=== PATIENT | female | born 1940 | race Caucasian/White ===

== ENCOUNTER 2020-01-05 21:32 | Inpatient (IN) ==
[2020-01-05] MEDS ORDERED: SODIUM CHLORIDE 0.9% 500 ML IV STA (22:14)
[2020-01-05 22:35] LABS: Hematocrit 31.9 VOL% (35.7-47.0); Hemoglobin 11.1 GM/DL (12.0-16.0); Immature Granulocytes % 1.8 %; Immature Granulocytes Absolute 0.03 #; Lymphocytes # 0.2 10*3/uL (1.4-4.0); Mean Corpuscular HGB Conc 34.8 GM/DL (32-36); Mean Corpuscular Volume 89.6 FL (87-102); Mean Platelet Volume 9.1 FL (9.6-12.0); Monocytes % 2.4 % (1.7-12.7); Neutrophils % 84.8 % (38.7-73.9); Platelet Count 195 T/CUMM (130-400); Red Blood Count 3.56 MC/CUMM (3.8-5.5); White Blood Count 1.6 T/CUMM (4-12)
[2020-01-05 22:39] LABS: INR 0.9
[2020-01-05 22:51] LABS: Alanine Aminotransferase 21 U/L (13-56); Albumin 3.4 G/DL (3.4-5.0); Alkaline Phosphatase 72 U/L (45-117); Aspartate Amino Transferase 23 U/L (0-37); Blood Urea Nitrogen 19 MG/DL (7-18); Calcium 9.1 MG/DL (8.5-10.1); Estimated Glom Filtration Rate 54 ML/MIN; Glucose 172 MG/DL (74-106); Osmolality,Calculated 250.9 MOS/KG (273-304); Total Protein 6.2 G/DL (6.4-8.3)
[2020-01-05 23:02] LABS: Apearance,Urine CLEAR (Clear); Bilirubin,Urine Negative (Negative); Blood, Urine Small mg/dL (Negative); Glucose,Urine (UA) Negative (Negative); Hyaline Casts,Urine 1 /LPF (0-3); Ketones,Urine Negative (Negative); Nitrite,Urine Negative (Negative); Protein,Urine Negative; RBC,Urine 11 /HPF (0-4); Urine Color Straw (Yellow); Urine Specific Gravity 1.006 (1.001-1.035); Urine Urobilinogen < 2.0 EU/DL (0.2-1.0); WBC,Urine <1 /HPF (0-6)
[2020-01-05 23:13] LABS: Barbiturates Screen,Urine Negative (Negative); Benzodiazepines Screen,Urine Negative (Negative); Cannabinoid Screen,Urine Negative (Negative); Opiate Screen,Urine Negative (Negative); Phencyclidine Screen,Urine Negative (Negative)
[2020-01-05] MEDS ORDERED: MAGNESIUM SULF RIDER 2 GM in PREMIX 1 EACH IV STA (23:35)
[2020-01-05] MEDS ORDERED: guaiFENesin/DM ER 600-30 MG TABLET PO PRN (23:47)
[2020-01-05] MEDS ORDERED: hydrALAZINE 20 MG/1 ML VIAL IV PRN (23:47)
[2020-01-05] MEDS ORDERED: ONDANSETRON 4 MG/2 ML VIAL IV PRN (23:47)
[2020-01-05] MEDS ORDERED: NICOTINE 21 MG/24 HR PATCH TRANSDERM PRN (23:47)
[2020-01-05] MEDS ORDERED: PROMETHAZINE 25 MG/1 ML VIAL IM PRN (23:47)
[2020-01-05] MEDS ORDERED: diphenhydrAMINE CAP 25 MG CAPSULE PO PRN (23:47)
[2020-01-06 00:28] LABS: Anisocytosis 1+; Band Neutrophils 2 % (0-10); Hypochromasia Slight; Lymphocytes 11 % (20-55); Microcytosis Slight; Segmented Neutrophils 82 % (50-85); Total Cells Counted 100
[2020-01-06 00:29] LABS: Acanthocytes Few; Ovalocytes 1+; Platelet Estimate Adequate
[2020-01-06] MEDS: ALBUTEROL 2.5 MG/3 ML NEB RESP TX SCH ×4 (00:38→19:45)
[2020-01-06 00:52] LABS: Hematocrit 32.3 VOL% (35.7-47.0); Hemoglobin 11.1 GM/DL (12.0-16.0); Immature Granulocytes % 0.7 %; Immature Granulocytes Absolute 0.01 #; Lymphocytes # 0.2 10*3/uL (1.4-4.0); Lymphocytes % 17.6 % (21.3-54.2); Mean Corpuscular HGB Conc 34.4 GM/DL (32-36); Mean Platelet Volume 9.1 FL (9.6-12.0); Monocytes % 1.5 % (1.7-12.7); Neutrophils % 80.2 % (38.7-73.9); Platelet Count 196 T/CUMM (130-400); Red Blood Count 3.59 MC/CUMM (3.8-5.5); Red Cell Distribution Width 12.1 % (9.3-17.3); White Blood Count 1.4 T/CUMM (4-12)
[2020-01-06] MEDS ORDERED: TOLVAPTAN 15 MG TABLET PO SCH (01:00)
[2020-01-06 01:06] LABS: Albumin 3.2 G/DL (3.4-5.0); Bilirubin,Total 0.6 MG/DL (0.2-1.0); Osmolality,Calculated 249.9 MOS/KG (273-304); Thyroid Stimulating Hormone 1.05 uIU/ml (0.358-3.74); Total Protein 6.4 G/DL (6.4-8.3)
[2020-01-06] MEDS: SODIUM CHLORIDE 0.9% 1,000 ML IV SCH ×2 (01:30→09:40)
[2020-01-06 02:27] LABS: Acanthocytes Few; Anisocytosis 1+; Hypochromasia Slight; Lymphocytes 14 % (20-55); Microcytosis Slight; Ovalocytes Slight; Platelet Estimate Adequate; Segmented Neutrophils 79 % (50-85); Total Cells Counted 100
[2020-01-06] MEDS ORDERED: MAGNESIUM SULF RIDER 4 GM in PREMIX 1 EACH IV PRN ×2 (05:49→06:34)
[2020-01-06] MEDS: MAGNESIUM SULF RIDER 2 GM in PREMIX 1 EACH IV PRN (06:05)
[2020-01-06] MEDS ORDERED: SODIUM CHLORIDE 3% INJ 500 ML IV SCH (06:30)
[2020-01-06] MEDS ORDERED: MAGNESIUM SULF RIDER 2 GM in PREMIX 1 EACH IV PRN (06:34)
[2020-01-06] MEDS: PANTOPRAZOLE 40 MG TABLET PO SCH (09:35)
[2020-01-06] MEDS: ENOXAPARIN 40 MG/0.4 ML SYRINGE SUBCUT SCH (09:35)
[2020-01-06] MEDS: DOCUSATE SODIUM 100 MG CAPSULE PO PRN (09:37)
[2020-01-06] MEDS: POTASSIUM CHLORIDE 10 MEQ TABLET PO SCH (21:26)
[2020-01-06] MEDS: SIMVASTATIN 40 MG TABLET PO SCH (21:26)
[2020-01-07] MEDS: ALBUTEROL 2.5 MG/3 ML NEB RESP TX SCH ×4 (00:22→19:13)
[2020-01-07 05:31] LABS: Basophils % 0.4 % (0.0-0.8); Hematocrit 27.6 VOL% (35.7-47.0); Hemoglobin 9.3 GM/DL (12.0-16.0); Immature Granulocytes % 1.1 %; Immature Granulocytes Absolute 0.03 #; Lymphocytes # 0.6 10*3/uL (1.4-4.0); Lymphocytes % 24.5 % (21.3-54.2); Mean Corpuscular HGB Conc 33.7 GM/DL (32-36); Mean Corpuscular Volume 92.3 FL (87-102); Mean Platelet Volume 9.4 FL (9.6-12.0); Monocytes % 10.3 % (1.7-12.7); Neutrophils % 63.7 % (38.7-73.9); Platelet Count 185 T/CUMM (130-400); Red Blood Count 2.99 MC/CUMM (3.8-5.5); Red Cell Distribution Width 12.7 % (9.3-17.3); White Blood Count 2.6 T/CUMM (4-12)
[2020-01-07 06:07] LABS: Calcium 8.8 MG/DL (8.5-10.1); Osmolality,Calculated 271.1 MOS/KG (273-304)
[2020-01-07] MEDS: LEVOTHYROXINE 50 MCG TABLET PO SCH (06:09)
[2020-01-07] MEDS: PANTOPRAZOLE 40 MG TABLET PO SCH (08:28)
[2020-01-07] MEDS: ENOXAPARIN 40 MG/0.4 ML SYRINGE SUBCUT SCH (08:28)
[2020-01-07] MEDS: POTASSIUM CHLORIDE 10 MEQ TABLET PO SCH ×2 (08:28→21:17)
[2020-01-07] MEDS: SODIUM CHLORIDE 0.45% 1,000 ML IV SCH (11:00)
[2020-01-07 13:25] LABS: Osmolality, Serum 258 mOsm/kg (275 - 295)
[2020-01-07 13:55] LABS: Osmolality, Urine 277 mOsm/kg (150 - 1150)
[2020-01-07] MEDS: ACETAMINOPHEN 325 MG TABLET PO PRN (21:18)
[2020-01-07] MEDS: SIMVASTATIN 40 MG TABLET PO SCH (21:18)
[2020-01-07] MEDS: ZALEPLON 5 MG CAPSULE PO PRN (22:36)
[2020-01-08] MEDS: SODIUM CHLORIDE 0.45% 1,000 ML IV SCH ×2 (00:18→15:53)
[2020-01-08] MEDS: ALBUTEROL 2.5 MG/3 ML NEB RESP TX SCH ×4 (01:53→19:44)
[2020-01-08 05:48] LABS: Calcium 8.5 MG/DL (8.5-10.1); Calcium 8.7 MG/DL (8.5-10.1); Osmolality,Calculated 264.5 MOS/KG (273-304); Osmolality,Calculated 265.5 MOS/KG (273-304)
[2020-01-08] MEDS: LEVOTHYROXINE 50 MCG TABLET PO SCH (06:06)
[2020-01-08] MEDS: ACETAMINOPHEN 325 MG TABLET PO PRN ×2 (09:21→21:13)
[2020-01-08] MEDS: PANTOPRAZOLE 40 MG TABLET PO SCH (09:21)
[2020-01-08] MEDS: POTASSIUM CHLORIDE 10 MEQ TABLET PO SCH ×2 (09:21→21:06)
[2020-01-08] MEDS: ENOXAPARIN 40 MG/0.4 ML SYRINGE SUBCUT SCH (09:22)
[2020-01-08] MEDS ORDERED: predniSONE 50 MG TABLET PO SCH (13:00)
[2020-01-08] MEDS ORDERED: predniSONE 10 MG TABLET ONE (16:05)
[2020-01-08] MEDS ORDERED: predniSONE 20 MG TABLET ONE (16:05)
[2020-01-08] MEDS: predniSONE 50 MG TABLET PO SCH ×2 (16:13→22:50)
[2020-01-08] MEDS: MAGNESIUM SULF RIDER 2 GM in PREMIX 1 EACH IV PRN (16:18)
[2020-01-08] MEDS: SIMVASTATIN 40 MG TABLET PO SCH (21:06)
[2020-01-08] MEDS: ZALEPLON 5 MG CAPSULE PO PRN (21:13)
[2020-01-09] MEDS: ALBUTEROL 2.5 MG/3 ML NEB RESP TX SCH ×4 (01:03→19:59)
[2020-01-09] MEDS: SODIUM CHLORIDE 0.45% 1,000 ML IV SCH ×3 (04:34→15:45)
[2020-01-09] MEDS ORDERED: diphenhydrAMINE CAP 50 MG CAPSULE PO ONE (05:00)
[2020-01-09] MEDS ORDERED: predniSONE 50 MG TABLET PO ONE (05:00)
[2020-01-09 05:29] LABS: Hematocrit 28.7 VOL% (35.7-47.0); Hemoglobin 9.6 GM/DL (12.0-16.0); Immature Granulocytes % 1.4 %; Immature Granulocytes Absolute 0.04 #; Lymphocytes # 0.3 10*3/uL (1.4-4.0); Lymphocytes % 9.7 % (21.3-54.2); Mean Corpuscular HGB Conc 33.4 GM/DL (32-36); Mean Corpuscular Volume 92.6 FL (87-102); Mean Platelet Volume 9.6 FL (9.6-12.0); Monocytes % 1.1 % (1.7-12.7); Neutrophils % 87.8 % (38.7-73.9); Platelet Count 191 T/CUMM (130-400); Red Cell Distribution Width 13.2 % (9.3-17.3); White Blood Count 2.8 T/CUMM (4-12)
[2020-01-09] MEDS: LEVOTHYROXINE 50 MCG TABLET PO SCH (05:30)
[2020-01-09 05:41] LABS: Calcium 8.8 MG/DL (8.5-10.1); Osmolality,Calculated 266.7 MOS/KG (273-304)
[2020-01-09] MEDS ORDERED: predniSONE 20 MG TABLET ONE (09:58)
[2020-01-09] MEDS ORDERED: predniSONE 10 MG TABLET ONE (09:59)
[2020-01-09] MEDS: PANTOPRAZOLE 40 MG TABLET PO SCH (11:13)
[2020-01-09] MEDS: DOCUSATE SODIUM 100 MG CAPSULE PO PRN ×2 (11:13→21:32)
[2020-01-09] MEDS: POTASSIUM CHLORIDE 10 MEQ TABLET PO SCH ×2 (11:13→21:32)
[2020-01-09] MEDS: ENOXAPARIN 40 MG/0.4 ML SYRINGE SUBCUT SCH (11:13)
[2020-01-09] MEDS: predniSONE 50 MG TABLET PO SCH ×2 (16:37→23:47)
[2020-01-09] MEDS: SIMVASTATIN 40 MG TABLET PO SCH (21:32)
[2020-01-09] MEDS: ACETAMINOPHEN 325 MG TABLET PO PRN (21:42)
[2020-01-09] MEDS: ZALEPLON 5 MG CAPSULE PO PRN (21:43)
[2020-01-10] MEDS: ALBUTEROL 2.5 MG/3 ML NEB RESP TX SCH ×3 (01:58→12:17)
[2020-01-10] MEDS: SODIUM CHLORIDE 0.45% 1,000 ML IV SCH ×2 (03:21→07:46)
[2020-01-10] MEDS: LEVOTHYROXINE 50 MCG TABLET PO SCH (05:51)
[2020-01-10 07:14] VITALS: BP 167/76
[2020-01-10] MEDS: ENOXAPARIN 40 MG/0.4 ML SYRINGE SUBCUT SCH (09:16)
[2020-01-10] MEDS: PANTOPRAZOLE 40 MG TABLET PO SCH (09:17)
[2020-01-10] MEDS: DOCUSATE SODIUM 100 MG CAPSULE PO PRN (09:17)
[2020-01-10] MEDS: POTASSIUM CHLORIDE 10 MEQ TABLET PO SCH (09:17)
== END 2020-01-10 13:00 | disposition home or self-care (01) | DRG 640 ==
LOC: EDUNIT# → N.ED 21:32 → N.EDINP 23:47 → SUATTDRO 23:47 → N.ICU 01-06 00:19 → N.5E 01-06 13:52
PROVIDERS: ADMIT Family Medicine; ATTEND Family Medicine

== ENCOUNTER 2020-07-04 05:34 | Inpatient (IN) ==
[2020-07-04] MEDS ORDERED: ALVIMOPAN 12 MG CAPSULE ONE (06:18)
[2020-07-04] MEDS ORDERED: LEVOFLOXACIN INJ 100 ML IV ONE (06:18)
[2020-07-04] MEDS ORDERED: FAMOTIDINE 20 MG TABLET ONE (06:19)
[2020-07-04] MEDS ORDERED: DIAZEPAM 5 MG TABLET ONE (06:19)
[2020-07-04] MEDS ORDERED: SCOPOLAMINE 1.5 MG PATCH TRANSDERM ONE ×2 (06:19→06:28)
[2020-07-04] MEDS ORDERED: ALVIMOPAN 12 MG CAPSULE PO ONE (06:27)
[2020-07-04] MEDS ORDERED: FAMOTIDINE 20 MG TABLET PO ONE (06:28)
[2020-07-04] MEDS ORDERED: LORazepam 0.5 MG TABLET PO ONE (06:28)
[2020-07-04] MEDS ORDERED: LEVOFLOXACIN INJ 500 MG in PREMIX 1 EACH IV ONE (06:28)
[2020-07-04] MEDS ORDERED: LACTATED RINGERS 1,000 ML IV SCH (06:30)
[2020-07-04] MEDS ORDERED: LORazepam 0.5 MG TABLET ONE (06:36)
[2020-07-04 06:39] LABS: Apearance,Urine CLEAR (Clear); Bacteria,Urine Occasional /HPF (Few); Bilirubin,Urine Negative (Negative); Blood, Urine Negative (Negative); Glucose,Urine (UA) Negative (Negative); Ketones,Urine Negative (Negative); Nitrite,Urine Negative (Negative); Protein,Urine Negative; RBC,Urine 1 /HPF (0-4); Squamous Epithelial Cell,Urine Occasional /HPF (0-10); Urine Color Yellow (Yellow); Urine Urobilinogen < 2.0 EU/DL (0.2-1.0); WBC,Urine 13 /HPF (0-6)
[2020-07-04] MEDS ORDERED: SUGAMMADEX 200 MG/2 ML VIAL IV ONE (08:42)
[2020-07-04 09:03] LABS: Apearance,Urine CLEAR (Clear); Bacteria,Urine Occasional /HPF (Few); Bilirubin,Urine Negative (Negative); Blood, Urine Negative (Negative); Glucose,Urine (UA) Negative (Negative); Ketones,Urine Negative (Negative); Nitrite,Urine Negative (Negative); Protein,Urine Negative; RBC,Urine 2 /HPF (0-4); Urine Color Straw (Yellow); Urine Specific Gravity 1.009 (1.001-1.035); Urine Urobilinogen < 2.0 EU/DL (0.2-1.0)
[2020-07-04] MEDS ORDERED: ONDANSETRON 4 MG/2 ML VIAL IV PRN ×2 (09:04→09:36)
[2020-07-04] MEDS ORDERED: ONDANSETRON 4 MG/2 ML VIAL ONE (09:32)
[2020-07-04] MEDS ORDERED: MEPERIDINE 25 MG/1 ML VIAL ONE (09:32)
[2020-07-04] MEDS ORDERED: MEPERIDINE 25 MG/1 ML VIAL IV PRN (09:36)
[2020-07-04] MEDS ORDERED: fentaNYL 250 MCG/5 ML VIAL ONE (09:41)
[2020-07-04] MEDS ORDERED: LIDOCAINE 2% 5 ML VIAL ONE (09:41)
[2020-07-04] MEDS ORDERED: SEVOFLURANE 1 UNIT/15 MINUTE INH ONE (09:42)
[2020-07-04] MEDS ORDERED: NALOXONE 0.4 MG/ML VIAL ONE (09:42)
[2020-07-04] MEDS ORDERED: propofoL 200 MG/20 ML VIAL IV ONE (09:42)
[2020-07-04] MEDS ORDERED: DEXAMETHASONE 4 MG/1 ML VIAL ONE (09:42)
[2020-07-04] MEDS ORDERED: ROCURONIUM 100 MG/10 ML VIAL IV ONE (09:43)
[2020-07-04] MEDS ORDERED: SODIUM CHLORIDE 0.9% 1,000 ML IV ONE (09:43)
[2020-07-04] MEDS ORDERED: ePHEDrine 50 MG/ML VIAL ONE (09:43)
[2020-07-04] MEDS ORDERED: flumazeniL 0.5 MG/5 ML VIAL IV ONE (09:43)
[2020-07-04] MEDS ORDERED: ACETAMINOPHEN 1,000 MG/100 ML VIAL IV ONE (09:43)
[2020-07-04] MEDS: SODIUM CHLORIDE 0.9% 1,000 ML IV SCH ×2 (09:46→22:32)
[2020-07-04] MEDS: HYDROmorphone PCA 30 MG/30 ML SYRINGE IV SCH (09:50)
[2020-07-04] MEDS: LORazepam 0.5 MG TABLET PO SCH (20:48)
[2020-07-04] MEDS: amLODIPine 5 MG TABLET PO SCH (20:48)
[2020-07-04] MEDS: lisinopriL 5 MG TABLET PO SCH (20:48)
[2020-07-04] MEDS: MULTIVITAMIN (OCUVITE) TABLET PO SCH (20:48)
[2020-07-04] MEDS: POTASSIUM CHLORIDE 10 MEQ TABLET PO SCH (20:48)
[2020-07-04] MEDS: carvediloL 3.125 MG TABLET PO SCH (20:48)
[2020-07-04] MEDS: SIMVASTATIN 40 MG TABLET PO SCH (20:48)
[2020-07-04] MEDS: ALVIMOPAN 12 MG CAPSULE PO SCH (20:48)
[2020-07-05 05:57] LABS: Basophils % 0.1 % (0.0-0.8); Hematocrit 36.2 VOL% (35.7-47.0); Immature Granulocytes % 0.4 %; Immature Granulocytes Absolute 0.03 #; Lymphocytes # 0.7 10*3/uL (1.4-4.0); Lymphocytes % 7.7 % (21.3-54.2); Mean Corpuscular HGB Conc 33.1 GM/DL (32-36); Mean Corpuscular Volume 92.1 FL (87-102); Mean Platelet Volume 10.7 FL (9.6-12.0); Monocytes % 4.8 % (1.7-12.7); Platelet Count 166 T/CUMM (130-400); Red Blood Count 3.93 MC/CUMM (3.8-5.5); Red Cell Distribution Width 13.6 % (9.3-17.3); White Blood Count 8.4 T/CUMM (4-12)
[2020-07-05 06:17] LABS: Calcium 9.6 MG/DL (8.5-10.1); Osmolality,Calculated 278.8 MOS/KG (273-304)
[2020-07-05] MEDS: LEVOTHYROXINE 50 MCG TABLET PO SCH (06:28)
[2020-07-05] MEDS ORDERED: BISACODYL 10 MG SUPP RECTAL PRN (07:35)
[2020-07-05] MEDS: amLODIPine 5 MG TABLET PO SCH ×2 (09:10→21:15)
[2020-07-05] MEDS: CALCIUM (CARBONATE)/VITAMIN D 600 MG-400 UNIT TABLET PO SCH (09:10)
[2020-07-05] MEDS: DOCUSATE SODIUM 100 MG CAPSULE PO PRN (09:10)
[2020-07-05] MEDS: LORazepam 0.5 MG TABLET PO SCH ×2 (09:11→21:15)
[2020-07-05] MEDS: ALVIMOPAN 12 MG CAPSULE PO SCH ×2 (09:11→21:15)
[2020-07-05] MEDS: MULTIVITAMIN (OCUVITE) TABLET PO SCH ×2 (09:12→21:16)
[2020-07-05] MEDS: POTASSIUM CHLORIDE 10 MEQ TABLET PO SCH ×2 (09:12→21:15)
[2020-07-05] MEDS: carvediloL 3.125 MG TABLET PO SCH ×2 (09:12→21:15)
[2020-07-05] MEDS: FUROSEMIDE 40 MG TABLET PO SCH (09:13)
[2020-07-05] MEDS: HYDROmorphone PCA 30 MG/30 ML SYRINGE IV SCH (10:34)
[2020-07-05] MEDS: MAGNESIUM HYDROXIDE SUSP 30 ML UDCUP PO PRN (12:18)
[2020-07-05] MEDS: SIMVASTATIN 40 MG TABLET PO SCH (21:16)
[2020-07-05] MEDS: lisinopriL 5 MG TABLET PO SCH (21:29)
[2020-07-06] MEDS: LEVOTHYROXINE 50 MCG TABLET PO SCH (06:19)
[2020-07-06] MEDS: carvediloL 3.125 MG TABLET PO SCH ×2 (09:04→20:35)
[2020-07-06] MEDS: LORazepam 0.5 MG TABLET PO SCH ×2 (09:04→20:34)
[2020-07-06] MEDS: amLODIPine 5 MG TABLET PO SCH ×2 (09:04→20:36)
[2020-07-06] MEDS: traMADol 50 MG TABLET PO PRN ×2 (09:04→20:38)
[2020-07-06] MEDS: POTASSIUM CHLORIDE 10 MEQ TABLET PO SCH ×2 (09:04→20:35)
[2020-07-06] MEDS: FUROSEMIDE 40 MG TABLET PO SCH (09:04)
[2020-07-06] MEDS: MULTIVITAMIN (OCUVITE) TABLET PO SCH ×2 (09:04→20:36)
[2020-07-06] MEDS: DOCUSATE SODIUM 100 MG CAPSULE PO PRN (09:06)
[2020-07-06] MEDS: MAGNESIUM HYDROXIDE SUSP 30 ML UDCUP PO PRN (09:06)
[2020-07-06] MEDS: ALVIMOPAN 12 MG CAPSULE PO SCH ×2 (09:06→20:35)
[2020-07-06] MEDS: CALCIUM (CARBONATE)/VITAMIN D 600 MG-400 UNIT TABLET PO SCH (09:06)
[2020-07-06] MEDS: lisinopriL 5 MG TABLET PO SCH (20:36)
[2020-07-06] MEDS: SIMVASTATIN 40 MG TABLET PO SCH (20:36)
[2020-07-07] MEDS: LEVOTHYROXINE 50 MCG TABLET PO SCH (06:13)
[2020-07-07 07:28] VITALS: BP 160/71
[2020-07-07] MEDS: carvediloL 3.125 MG TABLET PO SCH (08:52)
[2020-07-07] MEDS: FUROSEMIDE 40 MG TABLET PO SCH (08:52)
[2020-07-07] MEDS: LORazepam 0.5 MG TABLET PO SCH (08:52)
[2020-07-07] MEDS: amLODIPine 5 MG TABLET PO SCH (08:53)
[2020-07-07] MEDS: MULTIVITAMIN (OCUVITE) TABLET PO SCH (08:53)
[2020-07-07] MEDS: CALCIUM (CARBONATE)/VITAMIN D 600 MG-400 UNIT TABLET PO SCH (08:54)
[2020-07-07] MEDS: ALVIMOPAN 12 MG CAPSULE PO SCH (08:54)
[2020-07-07] MEDS: POTASSIUM CHLORIDE 10 MEQ TABLET PO SCH (08:54)
== END 2020-07-07 13:30 | disposition home or self-care (01) | DRG 658 ==
LOC: N.OR 05:34 → N.SDSINP 05:34 → OBSVTOIN 09:04 → N.4E 10:28
PROVIDERS: ADMIT Urology; ATTEND Family Medicine